=== PATIENT | female | born 1985 | race Caucasian/White ===

== ENCOUNTER 2016-07-07 19:50 | Emergency (ER) | payer SELFPAY ==
[~2016-07-07] VITALS: Ht 157.5 cm; Wt 67.1 kg
[2016-07-07 19:52] VITALS: BP 117/81
== END 2016-07-07 20:30 | disposition home or self-care (01) ==
LOC: ER 19:53
DX: S13.4XXA Sprain of ligaments of cervical spine, initial encounter (principal); Z98.51 Tubal ligation status; V49.60XA Unspecified car occupant injured in collision with unspecified motor vehicles in traffic accident, initial encounter; Y93.89 Activity, other specified; Y92.413 State road as the place of occurrence of the external cause; Y99.8 Other external cause status
CPT/HCPCS: A4606; Z7502; Z7610